=== PATIENT | male | born 1950 | race Caucasian/White ===

== ENCOUNTER 2021-02-22 10:17 | Emergency (ER) | payer OTHER, MEDICAID ==
[~2021-02-22] VITALS: Ht 182.9 cm; Wt 65.9 kg
[2021-02-22] MEDS ORDERED: fentaNYL PF VIAL 100 MCG/2 ML VIAL IM ONE (10:45)
--- NOTE | 2021-02-22 11:26 | RAD ---
XR CHEST 1V History: Trach dislodgment Comparison: CT 10/16/2019, x-ray 05/26/2018. Technique: Portable AP radiograph of the chest. Findings: Right upper extremity PICC with catheter tip projecting at the lower SVC. Lungs are adequately inflated. Minimal linear left basilar airspace opacities. New 8 mm nodular opaci ty projecting in the left lower lobe or lingula and subtle hazy opacity projecting over the left medi al scapula. No pleural effusion, pneumothorax or pneumomediastinum. Cardiomediastinal silhouette and pulmonary vasculature are within normal limits. No acute osseous abnormality. Soft tissues are unrema rkable. Impression: 1. New nodular opacities projecting over the left upper and lower lobes. Recommend CT of the chest f or further evaluation. 2. No pneumothorax or pneumomediastinum identified. Electronically signed by: Daryl Sage MD (02/22/2021 11:24 AM) [id number]
[2021-02-22] MEDS ORDERED: HYDROmorphone 2 MG/ML VIAL IM ONE (11:30)
--- NOTE | 2021-02-22 11:39 | PHYS DOC ---
Past Medical History Additional Past Medical Histor: malignant neoplasm of pharynx, bph Past Surgical History: Other Additional Past Surgical Histo: unknown Smoking Status: Former Smoker Alcohol Use: Sober General Adult EDM: Chief Complaint: OTHER COMPLAINTS HPI: HPI: 70 yo M PMH cancer of the pharynx with trach (per pt x3-4 mns at [facility], 6mm), DVT on Eliquis, BPH, hypertension, COPD, GERD, presents to the ED from [place] with concern for trach dislodgment. Per EMS the trach had been out for a couple of hours, per halfway trach was out for approximately 3 to 4 days. [place] papers reviewed and patient was discharged from [facility] on January 23 (therefore trach has been placed for at least 30 days). Pt is a DNR. Review of Systems: Review of Systems: Constitutional: Denies fever or chills. [] Eyes: Denies change in visual acuity. [] HENT: Denies nasal congestion or sore throat. [] Respiratory: Denies cough or hemoptysis] Cardiovascular: Denies chest pain or edema. [] GI: Denies abdominal pain, nausea, vomiting, bloody stools or diarrhea. [] : Denies dysuria or hematuria Musculoskeletal: Denies back pain or joint pain. [] Integument: Denies rash or diaphoresis Neurologic: Denies headache, focal weakness or sensory changes. [] Psychiatric: Denies depression or anxiety. [] Heart Score: C/O Chest Pain: No Risk Factors: Risk Factors: DM, Current or recent (<one month) smoker, HTN, HLP, family history of CAD, obesity. Risk Scores: Score 0 - 3: 2.5% MACE over next 6 weeks - Discharge Home Score 4 - 6: 20.3% MACE over next 6 weeks - Admit for Clinical Observation Score 7 - 10: 72.7% MACE over next 6 weeks - Early Invasive Strategies Current Medications: Current Medications Medications (Trade) Dose Ordered Sig/Rakesh Start Time Stop Time Status Last Admin Dose Admin Fentanyl Citrate (Fentanyl 2ml Vial) 75 mcg 1X ONCE 02/22/21 10:45 02/22/21 10:46 Allergies: Allergies: Allergies Coded Allergies Type Severity Reaction Last Updated Verified No Known Drug Allergies 02/22/21 No Physical Exam: PE: Constitutional: Well developed, well nourished, no acute distress, non-toxic appearance. HENT: Normocephalic, atraumatic, very dry mucous membranes Eyes: EOMI, conjunctiva normal, no discharge. Neck: Normal range of motion, supple, stoma patent with mild irritation/no active bleeding or rash Cardiovascular: S1/2 present, mild tachycardia Lungs & Thorax: bilateral equal chest rise, no tachypnea or increased work of breathing, 99% on room air-requiring no supplemental oxygen Abdomen: soft, no tenderness, Skin: Warm, dry, Extremities: No tenderness, no cyanosis, Neurologic: Alert and oriented X 3, normal motor function, normal sensory function, no focal deficits noted. [] Psychologic: Affect normal, judgement normal, mood normal. [] Current Patient Data: Vital Signs: Vital Signs Date Time Temp Pulse Resp B/P (MAP) Pulse Ox O2 Delivery O2 Flow Rate FiO2 02/22/21 10:17 98.1 83 18 119/58 (78) 97 Nasal Cannula 2.0 98.1 EKG: EKG: [] Radiology/Procedures: Radiology/Procedures: [] IMAGING REPORT Signed PATIENT: LOPEZ WILHELM ACCOUNT: [id number] : 1950 LOCATION: ER AGE: 70 SEX: M EXAM STATUS: REG ER ORD. PHYSICIAN: SIOMARA BARAJAS DO REASON: trach dislodgement PROCEDURE: CHEST AP ONLY XR CHEST 1V History: Trach dislodgment Comparison: CT 10/16/2019, x-ray 05/26/2018. Technique: Portable AP radiograph of the chest. Findings: Right upper extremity PICC with catheter tip projecting at the lower SVC. Lungs are adequately inflated. Minimal linear left basilar airspace opacities. N ew 8 mm nodular opacity projecting in the left lower lobe or lingula and subtle hazy opacity projecting over the left medial scapula. No pleural effusion, pneumothorax or pneumomediastinum. Cardiomediastinal silhouette and pulmonary vasculature are within normal limits. No acute osseous abnormality. Soft tissues are unremarkable. Impression: 1. New nodular opacities projecting over the left upper and lower lobes. Recommend CT of the chest for further evaluation. 2. No pneumothorax or pneumomediastinum identified. Electronically signed by: Daryl Obrien MD (02/22/2021 11:24 AM) [id number] DICTATED and SIGNED BY: DARYL OBRIEN MD DATE: 02/22/21 [id number] IMAGING REPORT Signed PATIENT: LOPEZ WILHELM ACCOUNT: [id number] : 1950 LOCATION: ER AGE: 70 SEX: M EXAM STATUS: REG ER ORD. PHYSICIAN: SIOMARA BARAJAS DO REASON: confirm trach placement PROCEDURE: CHEST AP ONLY EXAMINATION: Chest radiograph. VIEWS: Single view COMPARISON: 02/22/2021 at 10:58 AM INDICATION:70 years, Male, confirm tracheostomy tube placement. FINDINGS/ IMPRESSION: Interval placement of tracheostomy tube, the tip terminates just below the level of clavicles, satisfactory position. No other significant changes since earlier exam. Electronically signed by: Barbara Al MD (02/22/2021 2:54 PM) [id number] DICTATED and SIGNED BY: BARBARA AL MD DATE: 02/22/21 [id number] 0 Course & Med Decision Making: Course & Med Decision Making Pertinent Labs and Imaging studies reviewed. (See chart for details) Concern for trach dislodgment with poor halfway trach care. I spoke to Dr. Everardo grimes, patient's ENT at [facility] who recommended local 1% lidocaine around stoma and to advance smaller Shiley size using nasal speculum. This was accomplished with a 4 Shiley with copious suctioning afterward - 10-20 cc thick yellow sputum. Will prescribed augmentin to cover for pneumonia. Shiley box instructions provided to pt and NH. Suspect tachycardia is related to patient's dehydration-which resolved to normal sinus rhythm in ED (pt w/dry mucous membranes). Will discharge home with strict ED return precautions were given for fever, hypoxia, or increased work of breathing. Encouraged urgent outpatient follow-up with PMD regarding pulmonary lung nodules and ENT. Life-threatening processes were considered but are low suspicion at this time, given history, physical exam and ED workup. Pt was educated on all prescription medications and adverse effects. All patient's questions were answered and pt was stable at time of discharge. Life/limb-threatening differential includes but is not limited to, ACS, dysrhythmia, pneumothorax or hemothorax, pulmonary embolus, pneumonia, bronchoconstriction, pulmonary edema, angioedema, epiglottitis, tracheitis, Dakota's angina, RPA/BIOLOGY INSTRUCTOR, anaphylaxis, angioedema, cardiac tamponade or murmurs, pericarditis, myocarditis, poisoning or toxicity, sepsis or autoimmune/neurologic disease. I have spoken with the patient and/or caregivers. I explained the patient's condition, diagnoses and treatment plan based on the information available to me at this time. I have answered the patient and/or caregiver's questions and addressed any concerns. The patient and/or caregivers have a good understanding of patient's diagnosis, condition and treatment plan as can be expected at this point. Vital signs have been stable. Patient's condition is stable and appropriate for discharge from the emergency department. Patient will pursue further outpatient evaluation with primary care physician or other designated or consulting physician as outlined in the discharge in structions. The patient and/or caregivers are agreeable to this plan of care and follow-up instructions have been explained in detail. The patient and/or caregivers have received these instructions in written form and have expressed an understanding of the discharge instructions. The patient and/or caregivers are aware that any significant change of condition or worsening of symptoms should prompt immediate return to this or the closest emergency department or call to 911. Papo Disclaimer: Papo Disclaimer: This electronic medical record was generated, in whole or in part, using a voice recognition dictation system. Departure Departure Impression: Primary Impression: Unspecified tracheostomy complication Additional Impression: Nodule of upper lobe of lung Disposition: HOME / SELF CARE / HOMELESS Condition: STABLE Referrals: LILA TINOCO MD (PCP) Follow-up with your primary care physician in 24 to 48 hours OR FOLLOW UP WITH FAMILY MEDICINE: [address] [place] [address] Patient Instructions: Care of a Tracheostomy Tube, How to Change a Cuffed Tracheostomy Tube, How to Suction a Tracheostomy, Stoma Care and Tracheostomy Tie Change Additional Instructions: Follow-up with your ENT surgeon Dr. Everardo Nunez [phone] FOLLOW UP WITH PULMONOLOGY: FOR DEFINITIVE MANAGEMENT-needs CT imaging for lung nodules [facility] [address] [place] [address] EMERGENCY DEPARTMENT GENERAL DISCHARGE INSTRUCTIONS Thank you for coming to [facility] Emergency Department (ED) today and trusting us with you care. We trust that you had a positive experience in our Emergency Department. If you wish to speak to the department management, you may call the Director at [phone]. YOUR FOLLOW UP INSTRUCTIONS ARE FOLLOWS: 1. Do you have a private Doctor? If you do not have a private doctor, please ask for a resource list of physicians or clinics that may be able to assist you with follow up care. 2. The Emergency Physicain has interpreted your x-rays. The X-Ray specialist will also review them. If there is a change in the findings, you will be notified in 48 hours when at all possible. 3. A lab test or culture has been done, your results will be reviewed and you will be notified if you need a change in treatment. ADDITIONAL INSTRUCTIONS AND INFORMATION: 1. Your care today has been supervised by a physician who is specially trained in emergency care. Many problems require more than one evaluation for a complete diagnosis and treatment. We recommend that you schedule your follow up appointment as recommended to ensure complete treatment of you illness or injury. If you are unable to obtain follow up care and continue to have a problem, or if your condition worsens, we recommend that you return to the ED. 2. We are not able to safely determine your condition over the phone nor are we able to give sound medical advice over the phone. For these safety reasons, if you call for medical advice we will ask you to come to the ED for further evaluation. 3. If you have any questions regarding these discharge instructions please call the ED at [phone]. SAFETY INFORMATION: In the interest of safety, wellness, and injury prevention; we encourage you to wear your sealbelt, if you smoke; quite smoking, and we encourage family to use a protective helmet for bicycling and other sporting events that present an increased risk for head injury. IF YOUR SYMPTOMS WORSEN OR NEW SYMPTOMS DEVELOP, OR YOU HAVE CONCERNS ABOUT YOUR CONDITION; OR IF YOUR CONDITION WORSENS WHILE YOU ARE WAITING FOR YOUR FOLLOW UP APPOINTMENT; EITHER CONTACT YOUR PRIMARY CARE DOCTOR, THE PHYSICIAN WHOSE NAME AND NUMBER YOU WERE GIVEN, OR RETURN TO THE ED IMMEDIATELY. Scripts Amoxicillin/Potassium Clav (AUGMENTIN 875-125 TABLET) 1 Each Tablet 1 TAB PO BID for 10 Days, #20 TAB 0 Refills Prov: SIOMARA BARAJAS DO 02/22/21 SIOMARA BARAJAS DO Feb 22, 2021 11:39
[2021-02-22] MEDS ORDERED: LIDOCAINE 2% PF 5 ML VIAL. INJ ONE (12:45)
[2021-02-22 14:34] VITALS: BP 123/59
--- NOTE | 2021-02-22 14:56 | RAD ---
EXAMINATION: Chest radiograph. VIEWS: Single view COMPARISON: 02/22/2021 at 10:58 AM INDICATION:70 years, Male, confirm tracheostomy tube placement. FINDINGS/ IMPRESSION: Interval placement of tracheostomy tube, the tip terminates just below the level of clavicles, satisf actory position. No other significant changes since earlier exam. Electronically signed by: Tye Al MD (02/22/2021 2:54 PM) [id number]
[2021-02-22] MEDS ORDERED: AMOX1TAB61 PO (15:34)
== END 2021-02-22 15:45 | disposition home or self-care (01) ==
LOC: ER 10:17
DX: J95.03 Malfunction of tracheostomy stoma (principal); R91.1 Solitary pulmonary nodule; J44.9 Chronic obstructive pulmonary disease, unspecified; I10 Essential (primary) hypertension; K21.9 Gastro-esophageal reflux disease without esophagitis; Z86.718 Personal history of other venous thrombosis and embolism; Z87.891 Personal history of nicotine dependence; Y84.8 Other medical procedures as the cause of abnormal reaction of the patient, or of later complication, without mention of misadventure at the time of the procedure; Y92.89 Other specified places as the place of occurrence of the external cause
CPT/HCPCS: 71045; 96372; 99285; J1170

== ENCOUNTER 2021-04-23 11:22 | Emergency (ER) | payer OTHER, MEDICAID ==
[~2021-04-23] VITALS: Ht 193 cm; Wt 67.2 kg
[~2021-04-23 11:22] MED LIST: AMOX1TAB61 PO
--- NOTE | 2021-04-23 12:03 | PHYS DOC ---
Past Medical History Additional Past Medical Histor: malignant neoplasm of pharynx, bph Past Surgical History: Other Additional Past Surgical Histo: unknown Smoking Status: Former Smoker Alcohol Use: None General Adult EDM: Chief Complaint: GTUBE REPLACEMENT/MALFUNCTION HPI: HPI: 70 year old male presents after his G-tube came out this morning while he was going to the bathroom. The tube came out around 10:30 this morning and was init ially placed approximately 3-4 months ago for protein-calorie malnutrition. He did not have any pain when the G-tube came out and denies any current abdominal pain, nausea, vomiting, or diarrhea. Review of Systems: Review of Systems: Constitutional: Denies fever or chills Eyes: Denies redness or eye pain HENT: Denies nasal congestion or sore throat Respiratory: Denies cough or shortness of breath Cardiovascular: Denies chest pain or palpitations GI: Denies abdominal pain, nausea, or vomiting : Denies dysuria or hematuria Integument: Denies rash or skin lesions Neurologic: Denies headache, focal weakness or sensory changes Complete systems were reviewed and found to be within normal limits, except as documented in this note. Heart Score: C/O Chest Pain: N/A Allergies: Allergies: Allergies Coded Allergies Type Severity Reaction Last Updated Verified No Known Drug Allergies 04/23/21 No Physical Exam: PE: Constitutional: Well developed, poorly nourished, no acute distress, non-toxic appearance HENT: Normocephalic, atraumatic. Difficulty hearing. Eyes: Conjunctiva normal, no discharge Neck: Normal range of motion, no tenderness, supple. Trachiostomy tube in place. Lungs & Thorax: No respiratory distress, equal chest rise and fall. Lungs clear to auscultation bilaterally with distant lung sounds. Cardiovascular: Regular rate and rhythm with distant heart sounds. Abdomen: Soft, no tenderness. G-tube stoma present with no surrounding erythema or tenderness. No tenderness or guarding throughout abdomen. Skin: Warm, dry, no erythema, no rash Extremities: No tenderness, ROM intact, no edema Neurologic: Alert and oriented X 3, normal motor function, normal sensory function, no focal deficits noted Psychologic: Affect normal, judgment normal Current Patient Data: Vital Signs: Vital Signs Date Time Temp Pulse Resp B/P (MAP) Pulse Ox O2 Delivery O2 Flow Rate FiO2 04/23/21 11:30 97.3 93 16 115/70 (85) 95 Nasal Cannula 2.0 97.3 EKG: EKG: [] Radiology/Procedures: Radiology/Procedures: [] Course & Med Decision Making: Course & Med Decision Making Pertinent Labs and Imaging studies reviewed. (See chart for details) 70 year old male presented to the ED after his G-tube came out this morning. The patient originally had a 20 australian G-tube in place, but this was unavailable in the Ed. As a result, the decision was made to place an 18 australian G-tube today. The new G-tube was put in place, with the correct placement being confirmed by x-ray. He was instructed to follow-up with GI. Patient stable for discharge with outpatient follow-up with PCP. Discussed findings and plan with patient, who acknowledges understanding and agreement. [] Dragon Disclaimer: Dragon Disclaimer: This electronic medical record was generated, in whole or in part, using a voice recognition dictation system. Additional Procedures Progress GTube replacement: Verbal consent obtained. Time out performed. Hand hygiene utilized. Lubrication was applied to the end of a 22 australian G-tube. Placement of the tube through the existing stoma was not successful due to the size of the tube and irritation of the existing site, so the decision was made to switch to an 18 australian G-tube. Lubrication was applied to the end of the smaller tube and it was successfully inserted through the stoma into the stomach. 20 mL of saline were injected into the 20 mL balloon port to secure the G-tube in place. The G-tube was secured and an x-ray was performed to confirm the correct positioning of the tube. Patient tolerated procedure well and without difficulty. This patient originally had a 20 australian G-tube, but only a 22 australian and 18 australian G-tube were abailable in the ED for replacement. Departure Departure Impression: Primary Impression: Encounter for feeding tube placement Disposition: HOME / SELF CARE / HOMELESS (back to shelter) Condition: STABLE Patient Instructions: Gastric Tube Replacement JOHANNA OH DO Apr 23, 2021 12:03
[2021-04-23] MEDS ORDERED: IOHEXOL 300 MG/ML 50 ML VIAL. ONE (14:38)
[2021-04-23] MEDS ORDERED: IOHEXOL 300 MG/ML 50 ML VIAL. IJ ONE (14:45)
[2021-04-23] MEDS ORDERED: CONTRAST GIVEN. MC PRN (14:45)
[2021-04-23 15:05] VITALS: BP 136/69
--- NOTE | 2021-04-23 15:06 | RAD ---
EXAM: Abdomen, single view. HISTORY: G-tube placement. COMPARISON: None. FINDINGS: A frontal view of the abdomen is obtained. There is a gastrostomy tube within the stomach. There is associated contrast within the gastric lumen due to appropriate tube positioning. There is n o extravasation. There is a large amount of colonic gas and stool. There is left lower lobe atelectas is or infiltrate. IMPRESSION: 1. Gastrostomy tube in expected position. No evidence of contrast extravasation. 2. Constipation. Electronically signed by: Sheree Fiore MD (04/23/2021 3:03 PM) [id number]
== END 2021-04-23 15:24 | disposition home or self-care (01) ==
LOC: ER 11:22
DX: K94.23 Gastrostomy malfunction (principal); Z87.891 Personal history of nicotine dependence; Y83.8 Other surgical procedures as the cause of abnormal reaction of the patient, or of later complication, without mention of misadventure at the time of the procedure; Y92.89 Other specified places as the place of occurrence of the external cause
CPT/HCPCS: 43762; 74018; 99284; Q9967